=== PATIENT | female | born 1965 | race Caucasian/White ===

== ENCOUNTER 2017-07-09 11:01 | Outpatient (CLI) | payer BC, OTHER ==
[~2017-07-09 11:01] MED LIST: LEVO25TA7
== END 2017-07-09 23:59 | disposition home or self-care (01) ==
LOC: CARD 11:01
PROVIDERS: ATTEND Legal Medicine
DX: M79.89 Other specified soft tissue disorders (principal)
CPT/HCPCS: 93971-TC

== ENCOUNTER 2019-11-17 08:01 | Outpatient (CLI) | payer BC, OTHER ==
[2019-11-17 09:08] LABS: BASOPHILS # (AUTO) 0.1 /CMM (0.0-0.2); BASOPHILS % (AUTO) 1.1 % (0.0-2.0); EOSINOPHILS % (AUTO) 5.1 % (0.0-6.0); HEMATOCRIT 43 % (33-45); HEMOGLOBIN 14.2 g/dL (11.5-14.8); LYMPHOCYTES # (AUTO) 2.1 /CMM (0.8-4.8); LYMPHOCYTES % (AUTO) 33.9 % (20.0-44.0); MEAN CORPUSCULAR HGB CONC 33 g/dl (31.0-36.0); MEAN CORPUSCULAR VOLUME 87 fL (82-100); MONOCYTES # (AUTO) 0.6 /CMM (0.1-1.30); MONOCYTES % (AUTO) 9.5 % (2.0-12.0); NEUTROPHILS # (AUTO) 3.2 /CMM (1.8-8.9); NEUTROPHILS % (AUTO) 50.4 % (43.0-81.0); PLATELET COUNT (AUTO) 346 /CMM (150-450); RED BLOOD CELL COUNT(AUTO) 4.95 MIL/uL (4.0-5.2); WHITE BLOOD COUNT (AUTO) 6.3 K/uL (4.3-11.0)
[2019-11-17 09:26] LABS: APPEARANCE,URINE SL CLOUDY (CLEAR); BILIRUBIN,URINE NEGATIVE (NEGATIVE); BLOOD, URINE NEGATIVE Ery/uL (NEGATIVE); COLOR,URINE YELLOW (YELLOW); KETONES,URINE NEGATIVE (NEGATIVE); LEUKOCYTE ESTERASE ,URINE NEGATIVE (NEGATIVE); NITRITE, URINE NEGATIVE (NEGATIVE); PROTEIN,URINE NEGATIVE (NEGATIVE); UGLUCOSE NEGATIVE (NEGATIVE); UROBILINOGEN,URINE 0.2 EU/dL (0.2)
[2019-11-17 10:26] LABS: ALBUMIN 3.9 g/dL (3.4-5.0); BILIRUBIN,TOTAL 0.4 mg/dL (0.2-1.0); CALCIUM, SERUM 8.9 mg/dL (8.5-10.1); CREATININE 0.8 mg/dL (0.6-1.3); TOTAL PROTEIN, SERUM 7.6 g/dL (6.4-8.2)
[2019-11-17 10:42] LABS: FREE T4 (FREE THYROXINE) 1.2 ng/dL (0.76-1.46); THYROID STIMULATING HORMONE 3.502 uIU/mL (0.358-3.74)
[2019-11-18 07:07] LABS: FOLIC ACID 15.5 ng/mL (>3.0)
[2019-11-18 08:08] LABS: T3, FREE 2.7 pg/mL (2.0-4.4)
== END 2019-11-17 23:59 | disposition home or self-care (01) ==
LOC: LAB 08:01
PROVIDERS: ATTEND Legal Medicine
DX: E03.9 Hypothyroidism, unspecified (principal); E55.9 Vitamin D deficiency, unspecified; E78.00 Pure hypercholesterolemia, unspecified; Z00.00 Encounter for general adult medical examination without abnormal findings
CPT/HCPCS: 36415; 80053-TC; 80061-TC; 81000-TC; 82306; 82728-TC; 83540-TC; 84439-TC; 84443-TC; 84481; 85025-TC

== ENCOUNTER 2019-12-21 09:13 | Emergency (ER) | payer BC, OTHER ==
[~2019-12-21] VITALS: Ht 172.7 cm; Wt 115.7 kg
[2019-12-21] MEDS ORDERED: ASPIRIN 325 MG TABLET PO ONE (09:30)
[2019-12-21] MEDS ORDERED: NITROGLYCERIN 0.4 MG/TAB BOTTLE SL ONE (09:30)
--- NOTE | 2019-12-21 09:30 | NUR ---
PT BIB SELF, C/O OF CHEST TIGHTNESS THAT STARTED LAST NIGHT BUT SHE SAYS THAT SHE DOES NOT FEEL IT ANYMORE THIS MORNINNG. PT STATES THAT SHE HAS HX OF ASTHMA AND THAT SHE TOOK ALBUTEROL LAST NIGHT BUT THAT IT DIDNT WORK MUCH BUT SHE ALSO STATES THAT HER CHEST TIGHTNESS HAS BEEN GONE SINCE THIS AM. VS CHECKED. HOOKED ON MONITOR. AWAITING MD GAUTAM.
[2019-12-21 09:46] LABS: BASOPHILS # (AUTO) 0.1 /CMM (0.0-0.2); BASOPHILS % (AUTO) 1.4 % (0.0-2.0); HEMATOCRIT 43 % (33-45); HEMOGLOBIN 14.1 g/dL (11.5-14.8); LYMPHOCYTES # (AUTO) 1.7 /CMM (0.8-4.8); LYMPHOCYTES % (AUTO) 22.6 % (20.0-44.0); MEAN CORPUSCULAR HGB CONC 33 g/dl (31.0-36.0); MEAN CORPUSCULAR VOLUME 87 fL (82-100); MONOCYTES # (AUTO) 0.7 /CMM (0.1-1.30); NEUTROPHILS # (AUTO) 4.8 /CMM (1.8-8.9); PLATELET COUNT (AUTO) 329 /CMM (150-450); RED BLOOD CELL COUNT(AUTO) 4.91 MIL/uL (4.0-5.2); WHITE BLOOD COUNT (AUTO) 7.5 K/uL (4.3-11.0)
[2019-12-21 09:58] LABS: CARBON DIOXIDE 28 mmol/L (21-32); CHLORIDE 103 mmol/L (98-107); POTASSIUM 4.2 mmol/L (3.5-5.1); SODIUM SERUM 139 mmol/L (136-145)
[2019-12-21 09:59] LABS: CALCIUM, SERUM 9.4 mg/dL (8.5-10.1); CREATININE 0.8 mg/dL (0.6-1.3); GLUCOSE 110 mg/dL (74-106); UREA NITROGEN, BLOOD 11 mg/dL (7-18)
[2019-12-21 10:04] LABS: B-TYPE NATRIURETIC PEPTIDE 280 PG/ML (0-125)
--- NOTE | 2019-12-21 10:15 | NUR ---
PER PT SHE ALREADY TOOK ASPIRIN THIS AM AT 8AM. ALSO PT DENIES ANY CHEST PAIN/TIGHTNESS AT THE MOMENT, STATED THAT SHE HAD IT LAST NIGHT BUT WAS GONE THIS MORNING. DR. FOLEY MADE AWARE. PER DR. FOLEY ITS OKAY NOT TO GIVE ASPIRIN IF PT ALREADY TOOK THIS AM AND OKAY NOT TO GIVE NITRO IF PT HAS NO CHEST PAIN ANYMORE.
[2019-12-21 10:43] VITALS: BP 148/81
--- NOTE | 2019-12-21 10:43 | NUR ---
Patient discharged to home in stable condition. Written and verbal after care instructions given. Patient verbalizes understanding of instruction. IV removed. Catheter intact and site benign. Pressure and 4x4 applied to site. No bleeding noted.
== END 2019-12-21 10:43 | disposition home or self-care (01) ==
LOC: ER 09:17
DX: R07.89 Other chest pain (principal); J45.909 Unspecified asthma, uncomplicated
CPT/HCPCS: 36415; 71045-TC; 80048-TC; 83880; 84484-TC; 85025-TC